=== PATIENT | female | born 1955 | race Hispanic/Latino ===

== ENCOUNTER 2017-01-18 10:17 | Outpatient (CLI) | payer OTHER ==
--- NOTE | 2017-01-18 15:35 | Mammography Report ---
Bilateral digital screening mammogram with CAD. History: Cancer screening in a breast cancer survivor status post partial left mastectomy and radiation therapy. Comparison is made to the previous study on February 10, 2015. Findings: Postsurgical and postradiation changes in the left breast are stable with no evidence of a new mass or worsening architectural distortion. Diffuse bilateral coarse benign calcifications are stable. The parenchyma in the right breast is moderately dense but no suspicious focal findings are seen. Impression: Stable benign findings. BI-RADS code: 2. Recommendation: Annual screening.
== END 2017-01-18 10:18 | disposition home or self-care (01) ==
LOC: MAMMO 10:17
PROVIDERS: ATTEND Internal Medicine
DX: Z12.31 Encounter for screening mammogram for malignant neoplasm of breast (principal); Z90.12 Acquired absence of left breast and nipple; Z85.3 Personal history of malignant neoplasm of breast
CPT/HCPCS: 77067; G0202

== ENCOUNTER 2017-07-19 11:03 | Day surgery (SDC) | payer BC, OTHER ==
[~2017-07-19 11:03] MED LIST: TETRACAINE 0.5% OD PRN
[2017-07-19] MEDS: AK-Dilate OD SCH ×3 (14:45→14:55)
[2017-07-19] MEDS: MYDRIACYL OD SCH ×3 (14:45→14:55)
[2017-07-19] MEDS: VIGAMOX OD SCH ×3 (14:45→14:55)
--- NOTE | 2017-07-19 15:29 | Anesthesia Day of Surgery ---
Anesthesia Day of Surgery - Day of Surgery Patient Examined: Yes Patient H&P Reviewed: Yes Patient is NPO: Yes
--- NOTE | 2017-07-19 15:30 | Anesthesia Consultation ---
Anesthesia Consult and Med Hx Date of service: 07/19/17 - Airway Anesthetic Teeth Evaluation: Good ROM Head & Neck: Adequate Mental/Hyoid Distance: Adequate Mallampati Class: Class III Intubation Access Assessment: Possibly Difficult - Pulmonary Exam CTA: Yes - Cardiac Exam Cardiac Exam: RRR - Pre-Operative Health Status ASA Pre-Surgery Classification: ASA3 Proposed Anesthetic Plan: IV Sedation - Pulmonary Hx Smoking: Yes (FOR 30 YEARS QUIT 8 YEARS AGO) - Central Nervous System Hx Psychiatric Problems: Yes - Other Systems Hx Alcohol Use: No Hx Substance Use: No Hx Cancer: Yes
[2017-07-19] MEDS ORDERED: SUBLIMAZE ONE (15:54)
[2017-07-19] MEDS ORDERED: DIAMOX PO ONE (16:03)
--- NOTE | 2017-07-19 16:04 | Operative Report ---
Operative Report Operative Report: PATIENT'S NAME: DATE OF : DATE OF SURGERY: 07/19/2017 PREOPERATIVE DIAGNOSIS: Cataract right eye POSTOPERATIVE DIAGNOSIS: Same OPERATIVE PROCEDURE: Phacoemulsification with intraocular lens implantation, right eye SURGEON: Indy Smith M.D. EXAMINER RATING CLERK SURGEON: None Lens: A)60 22.0 D ANESTHESIA: Monitored anesthesia care in combination with topical and intracameral anesthesia because of the established specific risk of reflux, arrhythmias, or anxiety attacks associated with ocular manipulation, as well as the difficulty of the action finisher to manage such potentially catastrophic events while simultaneously attempting to complete the surgical procedure and was deemed necessary for the patient's safety to have an X Ray Service Engineer present during the procedure whenever possible. An X Ray Service Engineer was utilized to regulate the intravenous sedation of the patient so the patient was cooperative yet not asleep in order for the patient to successfully maintain fixation of the eye on the operating light of the microscope. COMPLICATIONS: No surgical complications No blood loss. ALLERGIES: N known drug allergies PROGNOSIS: Excellent INDICATIONS FOR SURGERY: The patient is undergoing surgery in the hopes of eliminating or improving these visual difficulties. PROCEDURE: After arriving at the surgery center, the patient was given topical anesthetic and dilating drops, as noted in the record. The patient was then taken into the operating room and given more anesthetic drops. The eyelids , lashes, and lid margins were scrubbed with Betadine solution, and the patient was draped. The Nurse X Ray Service Engineer administered IV sedation and monitored the patient during the procedure. The eye was then fixated with a 0.12, and a stab incision was made in the peripheral clear cornea into the anterior chamber. This was made on my left side. Viscoelastic was next used to fill the anterior chamber. The eye was once again fixated with the 0.12 forceps and a keratome was used make an incision in clear cornea peripherally on my right hand side temporally. The capsule forceps were used to open the central anterior capsule and then make a continuous round capsulotomy. Hydrodissection was carried out utilizing a cannula and balanced salt solution to delineate the cortical material from the capsule and the nucleus from the cortical material. The phaco tip was introduced into the eye and used to remove the anterior cortical material in the area of the capsulotomy. Then the phaco tip was buried into the nucleus, and a chopping instrument was introduced into the eye and used to provide countertraction in the nucleus between this instrument and the phaco tip fracturing the nucleus. This procedure was repeated multiple times, providing multiple small segments of the lens, and then the phaco tip was used to remove each of these segments. An I/A tip was then used to remove the remaining cortex. The anterior chamber was refilled with viscoelastic. An one-piece, acrylic intraocular lens was then placed into an inserting cartridge. The tip of the inserting cartridge was introduced into the keratome incision and into the anterior chamber. The implant was gently advanced through the cartridge and into the eye, where it unfolded, and both haptics were placed in the capsular bag, where it centered nicely and appeared to be well fixated. After placement of the intraocular lens, the I~and~A handpiece was placed back into the eye and used to remove the viscoelastic, including viscoelastic that was behind the optic of the intraocular lens. The anterior chamber was then filled with balanced salt solution, and hydration of the wound was used to cause swelling of the wound and more appropriate watertight closure. When the wound was found to be firm, the patient was asked to comment on how bright the light was. If there was no light perception at all or if the light was substantially dimmer than during the rest of the surgery, the amount of fluid in the eye was decompressed to lower the intraocular pressure until the patient could see the bright light again. This was done to avoid any damage or decreased blood flow to the optic nerve. MEDICATIONS APPLIED AT END OF SURGERY: One drop of Pred Forte and Vigamox The patient was given a shield to wear at night and was instructed not to rub or push on the eye. DISCHARGE SUMMARY: The patient was released in stable condition. The patient and those with the patient were given a written sheet of postoperative instructions and counseling on any abnormal laboratory studies. The patient is to see us tomorrow for follow-up in the office and is to call immediately for any difficulties. Indy Smith M.D. Date
--- NOTE | 2017-07-19 16:05 | Short Stay Summary ---
Short Stay Documentation Date of service: 07/19/17 - History H&P: obtained from office - Allergies and Medications Current Medications: Allergies No Known Allergies Allergy (Verified 09/09/15 01:31) Home Medications Medication Instructions Recorded Confirmed Last Taken Type Citalopram [celeXA] 20 mg PO QDAY 07/18/17 07/19/17 07/18/17 History Active Medications Acetazolamide (Diamox) 500 mg PO ONCE ONE Stop: 07/19/17 16:04 Moxifloxacin HCl (Vigamox) 1 drops OD Q5MIN CAROLINE Stop: 07/21/17 06:01 Last Admin: 07/19/17 14:55 Dose: 1 drops Phenylephrine HCl (Ak-Dilate) 1 drops OD Q5MIN CAROLINE Stop: 07/21/17 06:01 Last Admin: 07/19/17 14:55 Dose: 1 drops Prednisolone Acetate (Pred Forte 1%) 1 drops OD QID CAROLINE Tetracaine HCl (Tetracaine 0.5%) 1 drops OD Q5M PRN PRN Reason: Analgesia Last Admin: 07/19/17 14:45 Dose: 1 drops Tropicamide (Mydriacyl) 1 drops OD Q5MIN CAROLINE Stop: 07/21/17 06:01 Last Admin: 07/19/17 14:55 Dose: 1 drops - Brief post op/procedure progress note Date of procedure: 07/19/17 Pre-op diagnosis: right cataract Post-op diagnosis: same Procedure: Phacoemulsification with intraocular lens insertion right eye Anesthesia: MAC, local Surgeon: SENDY JOLLY Estimated blood loss: none Specimen disposition: to lab Condition: stable - Disposition Condition at discharge: Good Disposition: DC-01 TO HOME OR SELFCARE - Discharge Diagnoses (1) Cataract Status: Resolved Qualifiers: Cataract type: age-related Age-related cataract type: nuclear Laterality : right Qualified Code(s): H25.11 - Age-related nuclear cataract, right eye Short Stay Discharge Plan Follow up with: MICHAEL CADET MD [Primary Care Provider] - 7 Days
[2017-07-19] MEDS ORDERED: VERSED ONE (16:06)
[2017-07-19 17:04] VITALS: BP 144/84
[2017-07-19] MEDS ORDERED: PRED FORTE 1% OD SCH (18:00)
== END 2017-07-19 16:50 | disposition home or self-care (01) ==
LOC: OR 11:03
DX: H26.9 Unspecified cataract (principal); F41.9 Anxiety disorder, unspecified; Z87.891 Personal history of nicotine dependence
CPT/HCPCS: 66984; J2250; J3010; V2632

== ENCOUNTER 2017-08-02 09:42 | Day surgery (SDC) | payer BC, OTHER ==
[~2017-08-02 09:42] MED LIST changes: -TETRACAINE 0.5% OD PRN; +TETRACAINE 0.5% OS PRN
[2017-08-02] MEDS: VIGAMOX OS SCH ×3 (10:45→10:55)
[2017-08-02] MEDS: AK-Dilate OS SCH ×3 (10:45→10:55)
[2017-08-02] MEDS: MYDRIACYL OS SCH ×3 (10:45→10:55)
--- NOTE | 2017-08-02 10:54 | Anesthesia Consultation ---
Anesthesia Consult and Med Hx Date of service: 08/02/17 - Airway Anesthetic Teeth Evaluation: Good, Partials Mental/Hyoid Distance: Adequate Mallampati Class: Class III Intubation Access Assessment: Possibly Difficult - Pulmonary Exam CTA: Yes - Cardiac Exam Cardiac Exam: RRR - Pre-Operative Health Status ASA Pre-Surgery Classification: ASA2 Proposed Anesthetic Plan: MAC - Pulmonary Hx Smoking: Yes (FOR 30 YEARS, QUIT 2009) - Central Nervous System Hx Psychiatric Problems: Yes - Other Systems Hx Alcohol Use: No Hx Substance Use: No Hx Cancer: Yes Hx Obesity: Yes
--- NOTE | 2017-08-02 10:54 | Anesthesia Day of Surgery ---
Anesthesia Day of Surgery - Day of Surgery Patient Examined: Yes Patient H&P Reviewed: Yes Patient is NPO: Yes
[2017-08-02] MEDS ORDERED: VERSED ONE (11:43)
[2017-08-02] MEDS ORDERED: SUBLIMAZE ONE (11:53)
[2017-08-02] MEDS ORDERED: DIAMOX PO ONE (12:11)
--- NOTE | 2017-08-02 12:12 | Operative Report ---
Operative Report Operative Report: PATIENT'S NAME: DATE OF : DATE OF SURGERY: PREOPERATIVE DIAGNOSIS: Cataract left eye POSTOPERATIVE DIAGNOSIS: Same OPERATIVE PROCEDURE: Phacoemulsification with intraocular lens implantation, left eye SURGEON: Indy Smith M.D. DESIZING MACHINE OPERATOR SURGEON: Bren Lens: ao60 21.5 D ANESTHESIA: Monitored anesthesia care in combination with topical and intracameral anesthesia because of the established specific risk of reflux, arrhythmias, or anxiety attacks associated with ocular manipulation, as well as the difficulty of the picker/puller to manage such potentially catastrophic events while simultaneously attempting to complete the surgical procedure and was deemed necessary for the patient's safety to have an Greenhouse Grower present during the procedure whenever possible. An Greenhouse Grower was utilized to regulate the intravenous sedation of the patient so the patient was cooperative yet not asleep in order for the patient to successfully maintain fixation of the eye on the operating light of the microscope. COMPLICATIONS: No surgical complications No blood loss. ALLERGIES: N known drug allergies PROGNOSIS: Excellent INDICATIONS FOR SURGERY: The patient is undergoing surgery in the hopes of eliminating or improving these visual difficulties. PROCEDURE: After arriving at the surgery center, the patient was given topical anesthetic and dilating drops, as noted in the record. The patient was then taken into the operating room and given more anesthetic drops. The eyelids , lashes, and lid margins were scrubbed with Betadine solution, and the patient was draped. The Nurse Greenhouse Grower administered IV sedation and monitored the patient during the procedure. The eye was then fixated with a 0.12, and a stab incision was made in the peripheral clear cornea into the anterior chamber. This was made on my left side. Viscoelastic was next used to fill the anterior chamber. The eye was once again fixated with the 0.12 forceps and a keratome was used make an incision in clear cornea peripherally on my right hand side temporally. The capsule forceps were used to open the central anterior capsule and then make a continuous round capsulotomy. Hydrodissection was carried out utilizing a cannula and balanced salt solution to delineate the cortical material from the capsule and the nucleus from the cortical material. The phaco tip was introduced into the eye and used to remove the anterior cortical material in the area of the capsulotomy. Then the phaco tip was buried into the nucleus, and a chopping instrument was introduced into the eye and used to provide countertraction in the nucleus between this instrument and the phaco tip fracturing the nucleus. This procedure was repeated multiple times, providing multiple small segments of the lens, and then the phaco tip was used to remove each of these segments. An I/A tip was then used to remove the remaining cortex. The anterior chamber was refilled with viscoelastic. An one-piece, acrylic intraocular lens was then placed into an inserting cartridge. The tip of the inserting cartridge was introduced into the keratome incision and into the anterior chamber. The implant was gently advanced through the cartridge and into the eye, where it unfolded, and both haptics were placed in the capsular bag, where it centered nicely and appeared to be well fixated. After placement of the intraocular lens, the I~and~A handpiece was placed back into the eye and used to remove the viscoelastic, including viscoelastic that was behind the optic of the intraocular lens. The anterior chamber was then filled with balanced salt solution, and hydration of the wound was used to cause swelling of the wound and more appropriate watertight closure. When the wound was found to be firm, the patient was asked to comment on how bright the light was. If there was no light perception at all or if the light was substantially dimmer than during the rest of the surgery, the amount of fluid in the eye was decompressed to lower the intraocular pressure until the patient could see the bright light again. This was done to avoid any damage or decreased blood flow to the optic nerve. MEDICATIONS APPLIED AT END OF SURGERY: One drop of Pred Forte and Vigamox The patient was given a shield to wear at night and was instructed not to rub or push on the eye. DISCHARGE SUMMARY: The patient was released in stable condition. The patient and those with the patient were given a written sheet of postoperative instructions and counseling on any abnormal laboratory studies. The patient is to see us tomorrow for follow-up in the office and is to call immediately for any difficulties. Indy Smith M.D. Date
--- NOTE | 2017-08-02 12:13 | Short Stay Summary ---
Short Stay Documentation Date of service: 08/02/17 - History H&P: obtained from office - Allergies and Medications Current Medications: Allergies No Known Allergies Allergy (Verified 07/31/17 13:27) Home Medications Medication Instructions Recorded Confirmed Last Taken Type Citalopram [celeXA] 20 mg PO QDAY 07/18/17 07/31/17 07/18/17 History Active Medications Acetazolamide (Diamox) 500 mg PO ONCE ONE Stop: 08/02/17 12:12 Moxifloxacin HCl (Vigamox) 1 drops OS Q5MIN CAROLINE Stop: 08/02/17 18:00 Last Admin: 08/02/17 10:55 Dose: 1 drops Phenylephrine HCl (Ak-Dilate) 1 drops OS Q5MIN CAROLINE Stop: 08/02/17 18:00 Last Admin: 08/02/17 10:55 Dose: 1 drops Prednisolone Acetate (Pred Forte 1%) 1 drops OS QID CAROLINE Tetracaine HCl (Tetracaine 0.5%) 1 drops OS Q5M PRN PRN Reason: Analgesia Stop: 08/02/17 18:00 Last Admin: 08/02/17 10:45 Dose: 1 drops Tropicamide (Mydriacyl) 1 drops OS Q5MIN CAROLINE Stop: 08/02/17 18:00 Last Admin: 08/02/17 10:55 Dose: 1 drops - Brief post op/procedure progress note Date of procedure: 08/02/17 Pre-op diagnosis: left cataract Post-op diagnosis: same Procedure: Phacoemulsification with intraocular lens insertion left eye Anesthesia: MAC, local Surgeon: SENDY JOLLY Estimated blood loss: none Pathology: none Condition: stable - Disposition Condition at discharge: Good Disposition: DC-01 TO HOME OR SELFCARE - Discharge Diagnoses (1) Cataract Status: Resolved Qualifiers: Cataract type: age-related Age-related cataract type: nuclear Laterality : left Qualified Code(s): H25.12 - Age-related nuclear cataract, left eye Short Stay Discharge Plan Follow up with: MICHAEL CADET MD [Primary Care Provider] - 7 Days
[2017-08-02 13:19] VITALS: BP 133/83
[2017-08-02] MEDS ORDERED: PRED FORTE 1% OS SCH (14:00)
--- NOTE | 2017-08-02 14:16 | Post Anesthesia Evaluation ---
- Post Anesthesia Evaluation Patient Participated: Yes Airway Patent: Yes Stable Respiratory Function: Yes Nausea/Vomiting: No Temp > 96.8F: Yes Pain Manageable: Yes Adequeate Hydration: Yes Anesthesia Complications: No
== END 2017-08-02 13:05 | disposition home or self-care (01) ==
LOC: OR 09:42
DX: H26.9 Unspecified cataract (principal); E66.9 Obesity, unspecified; Z87.891 Personal history of nicotine dependence; Z68.35 Body mass index [BMI] 35.0-35.9, adult
CPT/HCPCS: 66984; J2250; J3010; V2632

== ENCOUNTER 2019-05-20 06:20 | Day surgery (SDC) | payer BC, OTHER ==
[~2019-05-20 06:20] MED LIST changes: +SODIUM CHLORIDE 0.9% 1000 ML 1,000 ML IV SCH; -TETRACAINE 0.5% OS PRN
[2019-05-20] MEDS ORDERED: WATER FOR IRRIG STERILE 250 ML BOTTLE IR ONE (07:33)
[2019-05-20] MEDS ORDERED: LIDOCAINE (2%) 20 MG/1 ML VIAL 20 ML MDV INFILTRATI ONE (07:37)
[2019-05-20] MEDS ORDERED: propofoL 200 MG/20 ML VIAL IV ONE ×2 (07:37→08:48)
[2019-05-20] MEDS ORDERED: fentaNYL 100 MCG/2 ML INJ ONE (07:37)
--- NOTE | 2019-05-20 07:49 | Anesthesia Consultation ---
Anesthesia Consult and Med Hx Date of service: 05/20/19 - Airway Anesthetic Teeth Evaluation: Good ROM Head & Neck: Adequate Mental/Hyoid Distance: Adequate Mallampati Class: Class II Intubation Access Assessment: Probably Good - Pulmonary Exam CTA: Yes - Pre-Operative Health Status ASA Pre-Surgery Classification: ASA3 Proposed Anesthetic Plan: MAC - Pulmonary Hx Smoking: No Hx Respiratory Symptoms: No SOB: No Hx Sleep Apnea: No - Cardiovascular System Hx Hypertension: No - Central Nervous System Hx Neuromuscular Disorder: No Hx Seizures: No Hx Psychiatric Problems: Yes (Anxiety/Depression) - Gastrointestinal Hx Ulcer: Yes - Endocrine Hx Renal Disease: No Hx Cirrhosis: Yes Hx Liver Disease: Yes (Hepatitis C) - Hematic Hx Anemia: Yes - Other Systems Hx Cancer: Yes (Hx. Breast Ca) Hx Obesity: Yes - Additional Comments Anesthesia Medical History Comments: Patient denied previous anesthesia complications.
--- NOTE | 2019-05-20 07:51 | Anesthesia Day of Surgery ---
Anesthesia Day of Surgery - Day of Surgery Patient Examined: Yes Patient H&P Reviewed: Yes Patient is NPO: Yes
--- NOTE | 2019-05-20 09:12 | Short Stay Summary ---
Short Stay Documentation Date of service: 05/20/19 Narrative H&P: The patient presents today for endoscopy and banding of varices. She has known large esophageal varices. - History Past Medical History: cancer, liver disease Past Surgical History: Other (breast surgery) Social history: no significant social history, lives with family - Allergies and Medications Current Medications: Allergies No Known Allergies Allergy (Verified 07/31/17 13:27) Home Medications Medication Instructions Recorded Confirmed Last Taken Type Citalopram [Celexa] 20 mg PO QDAY 07/18/17 05/20/19 05/19/19 History Nadolol [Corgard] 20 mg PO QDAY #30 tablet 02/18/18 05/20/19 05/18/19 Rx Active Medications Sodium Chloride (Nacl 0.9% 1000 Ml) 1,000 mls @ 50 mls/hr IV DIRECT CAROLINE Last Admin: 05/20/19 07:29 Dose: 50 mls/hr Documented by: - Physical exam General appearance: no acute distress, well-nourished Integumentary: no rash, no growths, no abnormal pigmentation HEENT: Atraumatic, PERRLA, EOMI, Mucous membr. moist/pink Lungs: Clear to auscultation Breasts: deferred Heart: Regular rate, Normal S1, Normal S2, No murmurs Gastrointestinal: normoactive bowel sounds, no tenderness, no distended, no masses, no guarding, no organomegaly, obese Female Genitourinary: deferred Rectal Exam: deferred Extremities: no ischemia, pulses intact, pulses symmetrical, No edema, normal temperature, normal color, Full ROM Neurological: Normal gait, Normal speech, Strength at 5/5 X4 ext, Normal tone, Sensation intact, Cranial nerves 3-12 NL - Brief post op/procedure progress note Date of procedure: 05/20/19 Findings: see dictated report Estimated blood loss: none Pathology: list (antral biopsies, duodenal biopsies) Specimen disposition: to lab Condition: stable - Disposition Condition at discharge: Good Disposition: DC-01 TO HOME OR SELFCARE - Discharge Diagnoses (1) Cirrhosis of liver Status: Acute (2) Esophageal varices determined by endoscopy Status: Acute Short Stay Discharge Plan Activity: other (no driving for 24 hours) Weight Bearing Status: Full Weight Bearing Diet: regular Additional Instructions: Post Sedation D/C Instructions When you return home you may resume your regular diet unless otherwise directed. -Go directly home from the hospital and rest quietly. You may resume normal activities tomorrow. -Do NOT drive, return to work, operate any machinery or make any important personal or business decisions today. -Do NOT drink any alcohol or take nerve or sleeping drugs. They add to the effects of the medicine still present in your body. -SOFT DIET TODAY -FOLLOW UP WITH DR. RIVERA OFFICE TO RESCHEDULE PROCEDURE Follow up with: MICHAEL CADET MD [Primary Care Provider] - 7 Days
--- NOTE | 2019-05-20 09:17 | Operative Report ---
Operative Report Operative Report: Date of procedure: 05/20/2019 Procedure: Esophagogastroduodenoscopy with biopsies of the duodenum, biopsies of the stomach and banding of varices of the esophagus x5 Preprocedure diagnosis: Known large esophageal varices by prior endoscopy. History of cirrhosis due to hepatitis C. Recent history of bloating Post procedure diagnosis: Large esophageal varices, normal stomach and duodenum. Endoscopist: Dr. Carranza Anesthesia: Monitored anesthesia care per anesthesia department Medications: Propofol per anesthesia Estimated blood loss: 0 After careful discussion of the nature and purpose of the procedure as well as details the technique risks benefits and alternatives consent was obtained. The patient was placed in the left lateral decubitus position and medicated per anesthesia. The tip of the [employer] 570 video scope was passed per orum under direct vision into the esophagus and advanced into the stomach and descending duodenum. The descending duodenum the duodenal bulb and pylorus were symmetrical and normal. Multiple biopsies were taken of the descending duodenum and the third and second portion to assess for possible celiac disease. A single biopsy was taken in the bulb. The scope was withdrawn into the stomach and the stomach then gently insufflated with air. The antrum was normal. Biopsies were taken in the antrum for H. pylori testing in light of upper GI symptoms. The stomach was further insufflated and the scope was then retroflexed and partially withdrawn. The cardia, fundus, and body of the stomach were within normal limits and easily distensible.The scope was then withdrawn in the forward position. The esophagogastric junction was at 40 cm. The esophageal body revealed large esophageal varices in the distal esophagus and medium sized varices in the midesophagus. In light of her history of prior upper GI bleeding due to varices banding was performed. The scope was withdrawn and the banding device loaded. The scope was then reintroduced per orum into the esophagus and advanced distally. 5 bands were placed in the distal third of the esophagus successfully. No bleeding was encountered.. The procedure was was well tolerated and the patient was observed in recovery. Impressions: Large esophageal varices. Status post banding x5. Normal duodenum and stomach. Biopsies taken to assess for H. pylori in the antrum and for possible celiac disease in the duodenum. Plan: Repeat endoscopy for banding to obliteration in approximately 4 weeks. Electronically signed: Tomer Carranza MD
[2019-05-20 09:24] VITALS: BP 125/63
--- NOTE | 2019-05-20 10:49 | Post Anesthesia Evaluation ---
- Post Anesthesia Evaluation Patient Participated: Yes Airway Patent: Yes Stable Respiratory Function: Yes Nausea/Vomiting: No Temp > 96.8F: Yes Pain Manageable: Yes Adequeate Hydration: Yes Anesthesia Complications: No Block Receding Appropriately: Not Applicable Patient on Ventilator: No Other Comments: Immediately after propofol administration, pt. demonstrated paradoxical jerking movements and muscular stiffness. Complete resolution upon emergence.
== END 2019-05-20 06:21 | disposition home or self-care (01) ==
LOC: GIO 06:20
PROVIDERS: ATTEND Internal Medicine Gastroenterology
DX: I85.00 Esophageal varices without bleeding (principal); F41.9 Anxiety disorder, unspecified; F32.9 Major depressive disorder, single episode, unspecified; D64.9 Anemia, unspecified; K31.89 Other diseases of stomach and duodenum; E66.9 Obesity, unspecified; Z85.3 Personal history of malignant neoplasm of breast; Z79.899 Other long term (current) drug therapy; Z87.891 Personal history of nicotine dependence; Z98.890 Other specified postprocedural states; Z68.34 Body mass index [BMI] 34.0-34.9, adult
CPT/HCPCS: 43239; 43244; 88305; 88342; J2704; J3010; J7030

== ENCOUNTER 2019-07-30 10:32 | Day surgery (SDC) | payer BC, OTHER ==
[2019-07-30] MEDS: LACTATED RINGERS 1,000 ML IV SCH (11:20)
[2019-07-30] MEDS ORDERED: fentaNYL 100 MCG/2 ML INJ IV PRN (11:32)
[2019-07-30] MEDS ORDERED: ONDANSETRON 4 MG/2 ML INJ IV PRN (11:32)
--- NOTE | 2019-07-30 11:33 | Anesthesia Day of Surgery ---
Anesthesia Day of Surgery - Day of Surgery Patient Examined: Yes Patient H&P Reviewed: Yes Patient is NPO: Yes Beta Blockers: Yes
--- NOTE | 2019-07-30 11:35 | Anesthesia Consultation ---
Anesthesia Consult and Med Hx Date of service: 07/30/19 - Airway Anesthetic Teeth Evaluation: Crowns ROM Head & Neck: Adequate Mental/Hyoid Distance: Adequate Mallampati Class: Class III Intubation Access Assessment: Probably Good - Pre-Operative Health Status ASA Pre-Surgery Classification: ASA3 Proposed Anesthetic Plan: General - Pulmonary Hx Smoking: Yes (STOPPED X 12 YRS) Hx Respiratory Symptoms: No SOB: Yes (OCC. MILD SOB) Hx Sleep Apnea: No (CHERIE PRE SCREEN LOW RISK) - Cardiovascular System Hx Hypertension: No - Central Nervous System Hx Neuromuscular Disorder: No Hx Seizures: No Hx Psychiatric Problems: Yes (Anxiety/Depression) - Gastrointestinal Hx Ulcer: Yes - Endocrine Hx Renal Disease: No Hx Cirrhosis: Yes Hx Liver Disease: Yes (Hepatitis C) - Hematic Hx Anemia: Yes - Other Systems Hx Cancer: Yes (Left breast) Hx Obesity: Yes
[2019-07-30 11:41] LABS: Hematocrit 42.6 % (30.3-42.9); Hemoglobin 15.2 gm/dl (10.1-14.3); Mean Corpuscular HGB Conc 36 % (30-34); Mean Corpuscular Volume 96 fl (79-97); Platelet Count 129 K/mm3 (140-440); Red Blood Count 4.46 M/mm3 (3.65-5.03); Red Cell Distribution Width 13.7 % (13.2-15.2)
[2019-07-30] MEDS ORDERED: ceFAZolin/Water 2 GM/20 ML 2 GM/20 ML SYRINGE IV ONE (11:47)
[2019-07-30] MEDS: NADOLOL 20 MG TAB PO ONE (11:52)
[2019-07-30] MEDS: MIDAZOLAM 2 MG/2 ML INJ IV NR (11:53)
[2019-07-30] MEDS ORDERED: fentaNYL 100 MCG/2 ML INJ ONE (11:59)
[2019-07-30] MEDS ORDERED: LIDOCAINE MPF (2%) 20 MG/1 ML VIAL 5 ML ONE (11:59)
[2019-07-30] MEDS ORDERED: propofoL 200 MG/20 ML VIAL IV ONE ×2 (11:59→12:20)
[2019-07-30] MEDS ORDERED: ceFAZolin/Water 2 GM/20 ML 2 GM/20 ML SYRINGE IV NR (12:00)
[2019-07-30] MEDS: WATER FOR IRRIG STERILE 1,500 ML BOTTLE IR ONE (12:19)
[2019-07-30] MEDS: WATER FOR IRRIG STERILE 2000 ML IR ONE (12:19)
[2019-07-30] MEDS ORDERED: ePHEDrine SULFATE 50 MG/1 ML INJ ONE (12:30)
[2019-07-30] MEDS: MANNITOL/SORBITOL SOLUTION 3,000 ML IRRIG.SOLN IR ONE ×2 (12:40)
[2019-07-30] MEDS ORDERED: GLYCOPYRROLATE 0.4 MG/2 ML INJ ONE (13:15)
[2019-07-30] MEDS ORDERED: ONDANSETRON 4 MG/2 ML INJ ONE (13:15)
[2019-07-30] MEDS ORDERED: FUROSEMIDE 40 MG/4 ML INJ ONE (13:28)
--- NOTE | 2019-07-30 13:45 | Post Operative Note ---
Date of procedure: 07/30/19 Pre-op diagnosis: bladder tumor Post-op diagnosis: same Findings: large tumor Procedure: cysto turbt stent rpg Anesthesia: GETA Surgeon: TERE STARKS Estimated blood loss: minimal Pathology: list (tumor) Specimen disposition: to lab Condition: stable Disposition: PACU
--- NOTE | 2019-07-30 13:46 | Discharge Summary ---
Short Stay Discharge Plan Activity: other (no straining ) Weight Bearing Status: Full Weight Bearing Diet: low fat, low cholesterol, low salt Special Instructions: other (inc fluids ) Durable Medical Equipment Needed Upon Discharge: other (adame and j stent ) Follow up with: MICHAEL CADET MD [Primary Care Provider] - 7 Days TERE STARKS MD [Staff Physician] - 7 Days
--- NOTE | 2019-07-30 13:49 | Operative Report ---
PREOPERATIVE DIAGNOSES: Hematuria and bladder tumor. POSTOPERATIVE DIAGNOSES: Hematuria and bladder tumor with a larger tumor since her last visit. PROCEDURE: Cystoscopy, transurethral resection of bladder tumor, retrograde, right double-J stent. SURGEON: William Yepez MD ANESTHESIA: General. FINDINGS: This is a woman who presented with hematuria. She is a smoker. She had a tumor over the right orifice. It looked enough away that initially we were not going to place a stent, but as you will read in the report, once we started, it was very close to the orifice, so we placed a stent. DESCRIPTION OF PROCEDURE: The patient was brought to the operating room and placed on the operating table. Following induction of anesthesia, placed in lithotomy position, prepped and draped in usual sterile fashion. Bimanual exam showed no masses palpable. Cystoscopy showed a mass over the right orifice. It looked to be a decent amount away. Once we started resection, there was some bleeding. We decided at that point to place a stent to protect the orifice. A stent was placed. It was initially a 5-Czech, but it was not long enough, so it was changed to a 6-Czech double J. Resection of the tumor was carried out down to the muscle. The patient tolerated the procedure well. Hemostasis was assured. We talked to the family. We left a 22, 3-way with a plug, brought to recovery in stable condition. JOB# [id number] TANNER/TUYET
--- NOTE | 2019-07-30 14:28 | Fluoroscopy Report ---
] Bilateral retrograde pyelography INDICATION: Hematuria, bladder tumor FINDINGS: 4 views obtained from C-arm exam in the cystoscopy suite show selective cannulation of both ureteral orifices with retrograde contrast injection. Both ureters and intrarenal collecting systems are normal. There are no filling defects or irregular strictures to suggest neoplasm and there is no abnormality demonstrated. There is eventual placement of a right ureteral stent as well. Total fluoroscopic time was 1 minute 28 seconds Signer Name: Ramon Avalos MD Signed: 07/30/2019 2:23 PM Workstation Name: [id number]
[2019-07-30 14:39] VITALS: BP 163/84
--- NOTE | 2019-07-30 17:15 | Post Anesthesia Evaluation ---
- Post Anesthesia Evaluation Patient Participated: Yes Airway Patent: Yes Stable Respiratory Function: Yes Nausea/Vomiting: No Temp > 96.8F: Yes Pain Manageable: Yes Adequeate Hydration: Yes Anesthesia Complications: No Block Receding Appropriately: Not Applicable Patient on Ventilator: No
== END 2019-07-30 15:21 | disposition home or self-care (01) ==
LOC: OR 10:32
PROVIDERS: ATTEND Urology
DX: R31.9 Hematuria, unspecified (principal); C67.6 Malignant neoplasm of ureteric orifice; D64.9 Anemia, unspecified; F32.9 Major depressive disorder, single episode, unspecified; E66.9 Obesity, unspecified; F41.9 Anxiety disorder, unspecified; Z79.899 Other long term (current) drug therapy; Z87.891 Personal history of nicotine dependence; Z98.49 Cataract extraction status, unspecified eye; Z85.3 Personal history of malignant neoplasm of breast; Z98.890 Other specified postprocedural states; Z68.32 Body mass index [BMI] 32.0-32.9, adult
CPT/HCPCS: 36415; 52240; 52332; 74420; 85027; 88305; A4217; C1758; C1769; C2617; J0690; J1940; J2250; J2405; J2704; J3010; J7120; Q9967